=== PATIENT | female | born 1995 ===

== ENCOUNTER 2021-07-23 23:17 | Inpatient (IN) | payer OTHER, MEDICAID ==
--- NOTE | 2021-07-24 09:14 | PCM.LDHP ---
L&D History of Present Illness - General Date of Service: 07/24/21 Admit Problem/Dx: Admission Diagnosis/Problem Admission Diagnosis/Problem Source of Information: Patient History Limitations: Reports: No Limitations - History of Present Illness Improves with: Reports: None Worsens with: Reports: None Associated Symptoms: Reports: N - Related Data Allergies/Adverse Reactions: Allergies Allergy/AdvReac Type Severity Reaction Status Date / Time No Known Allergies Allergy Verified 04/19/18 12:25 MDT Home Medications: Home Meds Ferrous Sulfate [Iron] 325 mg PO DAILY 09/18/16 [History] Vit Calc,Iron,Folic [ Vitamins] 1 tab PO DAILY 09/18/16 [History] Ibuprofen 200 - 600 mg PO Q6H #50 tablet 04/19/18 [Rx] oxyCODONE HCl/Acetaminophen [Percocet 5-325 mg Tablet] 1 each PO Q6H #10 tablet 04/19/18 [Rx] 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 had MRSA in that wound Social & Family History - Caffeine Use Caffeine Use: Reports: Coffee H&P Review of Systems - Review of Systems: Review Of Systems: See Below General: Reports: No Symptoms HEENT: Reports: No Symptoms Pulmonary: Reports: No Symptoms Cardiovascular: Reports: No Symptoms Gastrointestinal: Reports: No Symptoms Genitourinary: Reports: No Symptoms Musculoskeletal: Reports: No Symptoms Skin: Reports: No Symptoms Psychiatric: Reports: No Symptoms Neurological: Reports: No Symptoms Hematologic/Lymphatic: Reports: No Symptoms Immunologic: Reports: No Symptoms L&D Exam - Exam Exam: See Below - OB Specific Contraction Intensity: Mild Movement: Active Heart Tones: Present Presentation: Vertex - Prather Score Prather Score Cervix Position: Midposition Prather Score Consistency: Soft Prather Score Effacement: 51-70% Prather Score Dilation: 1-2 cm Prather Score Infant's Station: -3 Prather Score Total: 6 - Exam General: Alert, Oriented HEENT: PERRLA, Conjunctiva Clear, EACs Clear, EOMI, Hearing Intact, Mucosa Moist & Streator, Nares Patent, Normal Nasal Septum, Posterior Pharynx Clear, TMs Clear Neck: Supple, Trachea Midline Lungs: Clear to Auscultation, Normal Respiratory Effort Cardiovascular: Regular Rate, Regular Rhythm GI/Abdominal Exam: Normal Bowel Sounds, Soft, Non-Tender, No Organomegaly, No Distention, No Abnormal Bruit, No Mass, Pelvis Stable Rectal Exam: Normal Exam, Normal Rectal Tone Genitourinary: Normal external exam, Normal bimanual exam, Normal speculum exam Back Exam: Normal Inspection, Full Range of Motion Extremities: Normal Inspection, Normal Range of Motion, Non-Tender, No Pedal Edema, Normal Capillary Refill Skin: Warm, Dry, Intact Neurological: Cranial Nerves Intact, Reflexes Equal Bilateral Psychiatric: Alert, Normal Affect, Normal Mood Problem List Initiated/Reviewed/Updated: Yes Assessment/Plan Comment:: 26 years old patient she is para 2002 she started her care late in our clinic she is admitted to labor and delivery in early labor because the distance the patient lived away from the hospital we can admit her and not given term labor.
--- NOTE | 2021-07-24 09:29 | PCM.PREANE ---
Preanesthetic Assessment - Procedure Proposed Procedure: Labor Epidural - Anesthesia/Transfusion/Family Hx Anesthesia History: Prior Anesthesia Reaction (PONV with narcotic in Epidural) Type of Anesthesia Reaction: Other (see below) (PONV) Family History of Anesthesia Reaction: No Transfusion History: No Prior Transfusion(s) - Review of Systems General: No Symptoms Pulmonary: No Symptoms Cardiovascular: No Symptoms Gastrointestinal: Other (Hep C, Obesity) Neurological: No Symptoms Other: Reports: None - Physical Assessment NPO Status Date: 07/24/21 NPO Status Time: 09:00 ASA Class: 3 Mental Status: Alert & Oriented x3 Airway Class: Mallampati = 2 Dentition: Reports: Normal Dentition Thyro-Mental Finger Breadths: 3 Mouth Opening Finger Breadths: 3 ROM/Head Extension: Full Lungs: Clear to Auscultation, Normal Respiratory Effort Cardiovascular: Regular Rate, Regular Rhythm - Allergies Allergies/Adverse Reactions: Allergies Allergy/AdvReac Type Severity Reaction Status Date / Time No Known Allergies Allergy Verified 04/19/18 12:25 MDT - Blood Blood Available: Yes Product(s) Available: PRBC - Anesthesia Plan Pre-Op Medication Ordered: None - Acknowledgements Anesthesia Type Planned: Epidural Pt an Appropriate Candidate for the Planned Anesthesia: Yes Alternatives and Risks of Anesthesia Discussed w Pt/Guardian: Yes Pt/Guardian Understands and Agrees with Anesthesia Plan: Yes 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 had MRSA in that wound - HOME MEDS Home Medications: Home Meds Ferrous Sulfate [Iron] 325 mg PO DAILY 09/18/16 [History] Vit Calc,Iron,Folic [ Vitamins] 1 tab PO DAILY 09/18/16 [History] Ibuprofen 200 - 600 mg PO Q6H #50 tablet 04/19/18 [Rx] oxyCODONE HCl/Acetaminophen [Percocet 5-325 mg Tablet] 1 each PO Q6H #10 tablet 04/19/18 [Rx]
[2021-07-24] MEDS ORDERED: Nalbuphine 10 MG/1 ML Vial IVPUSH PRN (09:32)
[2021-07-24] MEDS ORDERED: Ondansetron 4 MG/2 ML SDV IVPUSH PRN (09:32)
[2021-07-24] MEDS ORDERED: Butorphanol 1 MG/ML SDV IVPUSH PRN (09:32)
[2021-07-24] MEDS ORDERED: Sodium Chloride 0.9% 20 ML SDV IV PRN (09:32)
[2021-07-24] MEDS ORDERED: Methylergonovine 0.2 MG/1 ML Amp IM PRN (09:32)
[2021-07-24] MEDS ORDERED: Sodium Chloride 0.9% 10 ML Syringe FLUSH PRN (09:32)
[2021-07-24] MEDS ORDERED: Misoprostol 200 MCG Tab PO PRN (09:32)
[2021-07-24] MEDS ORDERED: Water For Irrigation,Sterile 1,000 ML Container IRR PRN (09:32)
[2021-07-24] MEDS ORDERED: Terbutaline 1 MG/ML SDV SUBCUT PRN (09:32)
[2021-07-24] MEDS ORDERED: Carboprost Tromethamine 250 MCG/1 ML Amp IM PRN (09:32)
[2021-07-24] MEDS ORDERED: Lidocaine 1% 50 ML MDV INJECT PRN (09:32)
[2021-07-24] MEDS ORDERED: Sodium Chloride 0.9% 2.5 ML Syringe FLUSH PRN (09:32)
[2021-07-24] MEDS ORDERED: Tranexamic Acid 1,000 MG in Sodium Chloride 0.9% 100 ML IV PRN (09:32)
[2021-07-24] MEDS: Lactated Ringers 1,000 ML IV SCH ×3 (09:40→22:34)
[2021-07-24] MEDS ORDERED: Oxytocin/0.9 % Sodium Chloride 30 UNIT/500 ML BAG IV SCH ×2 (09:45)
[2021-07-24] MEDS ORDERED: Misoprostol 25 MCG (1/4 of 100 MCG) Tab VAG PRN ×2 (10:00→14:00)
[2021-07-24] MEDS: Misoprostol 25 MCG (1/4 of 100 MCG) Tab PO SCH ×2 (10:24→14:26)
[2021-07-24] MEDS ORDERED: Ropivacaine HCl/PF 200 ML ONE (21:33)
--- NOTE | 2021-07-24 22:29 | PCM.SN.2 ---
- Free Text/Narrative Note: Lock out was 15 min with 6 ml bolus. Sterile technique used throughout. - Pre-Procedure Checklist Attending Provider Aware: Yes Chart Reviewed: Yes Consent Signed: Yes Labs Reviewed: Yes VS/FHR Reviewed: Yes Patient Identification Confirmation Method: Reports: Chart Visual, Verbal Patient Pt an Appropriate Candidate for the Planned Anesthesia: Yes Alternatives and Risks of Anesthesia Discussed w Pt/Guardian: Yes - Procedure Procedure Start Date: 07/24/21 Procedure Start Time: 21:[address]: Reports: Blood Pressure, Heart Rate, SPO2 Functional IV: Yes Safety Measures: Reports: Patient Identified, Procedure Verified, Site Verified, Procedure Time Out Patient Position: Reports: Sitting Prep: Reports: Betadine x3 Local Anesthetic: Reports: Intradermal Wheal w Lidocaine 1% (3 ml) Regional Placement Level: Reports: L3-4 Needle: Reports: 17 g Touhy Approach: Reports: Midline Technique: Reports: LARRY Glass Syringe LARRY Needle Depth (cm): 9 cm Parasthesia: Reports: None Fluid Obtained: Reports: None Catheter Depth at Skin (cm): 15 cm Test Dose Time: 21:52 Test Dose Medication: Reports: Lidocaine 1.5% w Epinephrine 1:200,000 (5 ml) Test Dose Response: Reports: Negative Loading Dose Time: 21:57 Loading Dose Medication: Ropivicaine 0.2% Loading Dose Patient Position: Supine Continuous Infusion Start Time: 21:58 Continuous Infusion Medication: Ropivicaine 0.2% Continuous Infusion Rate: 16
[2021-07-24] MEDS ORDERED: ePHEDrine 50 MG/ML SDV IVPUSH PRN (22:38)
--- NOTE | 2021-07-24 22:38 | PCM.POSTAN ---
POST ANESTHESIA ASSESSMENT - MENTAL STATUS Mental Status: Alert, Oriented - RESPIRATORY Respiratory Status: Respiratory Rate WNL, Airway Patent, O2 Saturation Stable - CARDIOVASCULAR CV Status: Pulse Rate WNL, Blood Pressure Stable (BP decreased following epidural and ephedrine and sis given for rapid correction) - GASTROINTESTINAL GI Status: No Symptoms - POST OP HYDRATION Hydration Status: Adequate & Stable
[2021-07-24] MEDS ORDERED: Ropivacaine/PF 400 MG/200 ML PCA EPIDUR SCH (22:45)
[2021-07-25] MEDS ORDERED: Furosemide 20 MG/2 ML VIAL IVPUSH ONE (08:55)
[2021-07-25] MEDS ORDERED: Furosemide 20 MG/2 ML VIAL ONE (09:06)
[2021-07-25] MEDS ORDERED: oxyCODONE 5 MG Tab PO PRN (09:20)
[2021-07-25] MEDS ORDERED: Bisacodyl 10 MG Supp RECTAL PRN (09:20)
[2021-07-25] MEDS ORDERED: Lanolin 100% Cream 7 GM Tube TOP PRN (09:20)
[2021-07-25] MEDS ORDERED: Benzocaine/Menthol 20%-0.5% Spray 78 GM Cannister TOP PRN (09:20)
[2021-07-25] MEDS ORDERED: Witch Hazel Medicated Pads 40/Jar TOP PRN (09:20)
[2021-07-25] MEDS ORDERED: Docusate Sodium 100 MG Cap PO PRN (09:20)
[2021-07-25] MEDS ORDERED: Acetaminophen 500 MG Tab PO PRN (09:20)
[2021-07-25] MEDS ORDERED: Ibuprofen 400 MG Tab PO PRN (09:20)
--- NOTE | 2021-07-25 14:51 | OR ---
SURGEON: James Fish MD DATE OF PROCEDURE: 07/25/2021 Ms. Cathi Enrique is 26 years old. She is para 2-0-0-2. She started late her care in our office. The patient is GBS status negative. She is admitted to Labor and Delivery with an early labor. She lived far away from the hospital. Because of that, we augmented her labor with Cytotec, no Pitocin, and the patient progressed rather slowly. She had epidural anesthesia for labor analgesia at 4 to 5 cm and then continued to progress slowly and she became complete, complete, and she was able to accomplish normal spontaneous vaginal delivery of a male fetus. score and the weight are not available to me at the time of the dictation. The reader referred to the nursery sheet. The placenta delivered spontaneous, complete, and intact. There was no episiotomy. There was no labial, vaginal, or perineal laceration. Estimated blood loss was 300 mL. heart rate was category 1 through the entire process of labor. There was no complication in the labor and delivery of this patient. LASHA / TORRI /[id number]
[2021-07-25] MEDS: Acetaminophen 500 MG Tab PO PRN (19:01)
[2021-07-25] MEDS: Misoprostol 25 MCG (1/4 of 100 MCG) Tab PO SCH ×2 (21:11→21:12)
[2021-07-25] MEDS: Ibuprofen 800 MG Tab PO PRN (22:36)
[2021-07-26] MEDS: Ibuprofen 800 MG Tab PO PRN (04:37)
[2021-07-26] MEDS: Acetaminophen 500 MG Tab PO PRN (04:38)
[2021-07-26 08:01] VITALS: BP 132/71; PULSE 64
--- NOTE | 2021-07-26 08:53 | PCM.PNPP ---
- General Info Date of Service: 08/15/21 Functional Status: Reports: Pain Controlled - Review of Systems General: Reports: No Symptoms HEENT: Reports: No Symptoms Pulmonary: Reports: No Symptoms Cardiovascular: Reports: No Symptoms Gastrointestinal: Reports: No Symptoms Genitourinary: Reports: No Symptoms Musculoskeletal: Reports: No Symptoms Skin: Reports: No Symptoms Neurological: Reports: No Symptoms Psychiatric: Reports: No Symptoms - General Info Date of Service: 07/26/21 - Patient Data Vital Signs - Most Recent: Last Vital Signs Temp 35.8 C L 07/26/21 08:00 Pulse 64 07/26/21 08:00 Resp 18 07/26/21 08:00 BP 132/71 07/26/21 08:00 Pulse Ox 94 L 07/26/21 08:00 Weight - Most Recent: 136.078 kg Lab Results - Last 24 Hours: Laboratory Results - last 24 hr 07/26/21 Range/Units 05:50 Hgb 9.6 L (12.0-16.0) g/dL Hct 29.5 L (36.0-46.0) % Med Orders - Current: Current Medications Acetaminophen (Acetaminophen 500 Mg Tab) 500 mg PO Q4H PRN PRN Reason: Pain (mild 1-3) Acetaminophen (Acetaminophen 500 Mg Tab) 1,000 mg PO Q4H PRN PRN Reason: Pain (mild 1-3) Last Admin: 07/26/21 04:38 Dose: 1,000 mg Documented by: Benzocaine/Menthol (Benzocaine/Menthol 20%-0.5% [place] 78 Gm Cannister) 78 gm TOP ASDIRECTED PRN PRN Reason: Perineal Comfort Measure Bisacodyl (Bisacodyl 10 Mg Supp) 10 mg RECTAL ONETIME PRN PRN Reason: Constipation Butorphanol Tartrate (Butorphanol 1 Mg/Ml Sdv) 1 mg IVPUSH Q1H PRN PRN Reason: Pain (severe 7-10) Last Admin: 07/24/21 18:25 Dose: 1 mg Documented by: Carboprost Tromethamine (Carboprost Tromethamine 250 Mcg/1 Ml Amp) 250 mcg IM ASDIRECTED PRN PRN Reason: Post Hemorrhage Docusate Sodium (Docusate Sodium 100 Mg Cap) 100 mg PO Q12H PRN PRN Reason: Constipation Last Admin: 07/25/21 19:00 Dose: 100 mg Documented by: Emollient Ointment (Lanolin 100% Cream 7 Gm Tube) 0 gm TOP ASDIRECTED PRN PRN Reason: Sore Nipples Ephedrine Sulfate (Ephedrine 50 Mg/Ml Sdv) 10 mg IVPUSH Q1M PRN PRN Reason: Hypotension Oxytocin/Sodium Chloride (Oxytocin 30 Unit In Ns 0.9% 500 Ml Premix) 30 unit in 500 mls @ 500 mls/hr IV TITRATE [facility] Last Admin: 07/25/21 08:40 Dose: 500 mls/hr Documented by: Tranexamic Acid 1,000 mg/ (Sodium Chloride) 110 mls @ 660 mls/hr IV ONETIME PRN PRN Reason: Bleeding Oxytocin/Sodium Chloride (Oxytocin 30 Unit In Ns 0.9% 500 Ml Premix) 30 unit in 500 mls @ 2 mls/hr IV TITRATE DONALD; Protocol Lactated Ringer's (Ringers, Lactated) 1,000 mls @ 150 mls/hr IV ASDIRECTED DONALD Last Admin: 07/24/21 22:34 Dose: 150 mls/hr Documented by: Ibuprofen (Ibuprofen 400 Mg Tab) 400 mg PO Q4H PRN PRN Reason: Pain (mild 1-3) Ibuprofen (Ibuprofen 800 Mg Tab) 800 mg PO Q6H PRN PRN Reason: Cramping Last Admin: 07/26/21 04:37 Dose: 800 mg Documented by: Lidocaine HCl (Lidocaine 1% 50 Ml Mdv) 50 ml INJECT ONETIME PRN PRN Reason: Laceration repair Methylergonovine Maleate (Methylergonovine 0.2 Mg/1 Ml Amp) 0.2 mg IM ASDIRECTED PRN PRN Reason: Post Hemorrhage Miscellaneous Medication (Phenylephrine Hcl In 0.9% Nacl 1 Mg/10 Ml Syringe) 0.1 mg IVPUSH Q1M PRN PRN Reason: Hypotension Misoprostol (Misoprostol 200 Mcg Tab) 200 mcg PO ONETIME PRN PRN Reason: Post Hemorrhage Nalbuphine HCl (Nalbuphine 10 Mg/1 Ml Vial) 10 mg IVPUSH Q1H PRN PRN Reason: Pain (severe 7-10) Ondansetron HCl (Ondansetron 4 Mg/2 Ml Sdv) 4 mg IVPUSH Q4H PRN PRN Reason: Nausea/Vomiting Oxycodone HCl (Oxycodone 5 Mg Tab) 5 mg PO Q2H PRN PRN Reason: Pain (severe 7-10) Ropivacaine (Ropivacaine/Pf 400 Mg/200 Ml Environmental Compliance Engineer) 400 mg EPIDUR ASDIRECTED DONALD Sodium Chloride (Sodium Chloride 0.9% 10 Ml Syringe) 10 ml FLUSH ASDIRECTED PRN PRN Reason: Keep Vein Open Sodium Chloride (Sodium Chloride 0.9% 2.5 Ml Syringe) 2.5 ml FLUSH ASDIRECTED PRN PRN Reason: Keep Vein Open Sodium Chloride (Sodium Chloride 0.9% 20 Ml Sdv) 10 ml IV ASDIRECTED PRN PRN Reason: IV Use Sterile Water (Water For Irrigation,Sterile 1,000 Ml Container) 1,000 ml IRR ASDIRECTED PRN PRN Reason: delivery Terbutaline Sulfate (Terbutaline 1 Mg/Ml Sdv) 0.25 mg SUBCUT ASDIRECTED PRN PRN Reason: Tacysystole Witch Brennan (Witch Brennan Medicated Pads 40/Jar) 1 pad TOP ASDIRECTED PRN PRN Reason: comfort care Discontinued Medications Furosemide (Furosemide 20 Mg/2 Ml Vial) 20 mg IVPUSH ONETIME ONE Stop: 07/25/21 08:56 Last Admin: 07/25/21 09:12 Dose: 20 mg Documented by: Furosemide (Furosemide 20 Mg/2 Ml Vial) Confirm Administered Dose 20 mg .ROUTE .STK-MED ONE Stop: 07/25/21 09:07 Last Admin: 07/25/21 21:12 Dose: Not Given Documented by: Ropivacaine (Naropin 0.2%) Confirm Administered Dose 200 mls @ as directed .ROUTE .STK-MED ONE Stop: 07/24/21 21:34 Last Admin: 07/25/21 21:12 Dose: Not Given Documented by: Misoprostol (Misoprostol 25 Mcg (1/4 Of 100 Mcg) Tab) 25 mcg VAG ONETIME PRN PRN Reason: Cervical Ripening Last Admin: 07/24/21 10:25 Dose: 25 mcg Documented by: Misoprostol (Misoprostol 25 Mcg (1/4 Of 100 Mcg) Tab) 25 mcg VAG Q4H PRN PRN Reason: Cervical Ripening Last Admin: 07/24/21 14:26 Dose: 25 mcg Documented by: Misoprostol (Misoprostol 25 Mcg (1/4 Of 100 Mcg) Tab) 25 mcg PO Q4H DONALD Last Admin: 07/25/21 21:12 Dose: Not Given Documented by: - Infant Interaction Infant Disposition, : [place] in Room with Family Feeding: Attempted ; Nursed Fair/Poor Support Person: Mother - Recovery Exam Fundal Tone: Firm Fundal Level: 2 Fingerbreadths Below Umbilicus Fundal Placement: Midline Lochia Amount: Scant Lochia Color: Rubra/Red Perineum Description: Intact, Minimal Bruising/Swelling Episiotomy/Laceration: None Bladder Status: Voiding Urinary Elimination: Voided - Exam General: Alert, Oriented HEENT: Pupils Equal Neck: Supple Lungs: Clear to Auscultation, Normal Respiratory Effort Cardiovascular: Regular Rate, Regular Rhythm GI/Abdominal Exam: Normal Bowel Sounds, Soft, Non-Tender, No Organomegaly, No Distention, No Abnormal Bruit, No Mass, Pelvis Stable Extremities: Normal Inspection, Normal Range of Motion, Non-Tender, No Pedal Edema, Normal Capillary Refill Skin: Warm, Dry, Intact Wound/Incisions: Healing Well Neurological: No New Focal Deficit Psy/Mental Status: Alert, Normal Affect, Normal Mood - Problem List Review Problem List Initiated/Reviewed/Updated: Yes - My Orders Last 24 Hours: My Active Orders 07/25/21 09:20 Patient Status [ADT] Routine Up ad Magalis [RC] ASDIRECTED Vital Signs [RC] PER UNIT ROUTINE Acetaminophen [Tylenol Extra Strength] 1,000 mg PO Q4H PRN Acetaminophen [Tylenol Extra Strength] 500 mg PO Q4H PRN Benzocaine/Menthol [Dermoplast Pain Relief 20%-0.5% [place]] 78 gm TOP ASDIRECTED PRN Docusate Sodium [Colace] 100 mg PO Q12H PRN Ibuprofen [Motrin] 400 mg PO Q4H PRN Ibuprofen [Motrin] 800 mg PO Q6H PRN Lanolin [Lansinoh HPA] See Dose Instructions TOP ASDIRECTED PRN bisacodyL [Dulcolax] 10 mg RECTAL ONETIME PRN oxyCODONE 5 mg PO Q2H PRN witch Brennan [Tucks] 1 pad TOP ASDIRECTED PRN Assess Lochia [WOMSER] Per Unit Routine Assess Uterine Involution [WOMSER] Per Unit Routine Peripheral IV Discontinue [OM.PC] Routine - Assessment Assessment:: Status post normal spontaneous vaginal delivery day #1 she is doing well she would be discharged home with a regular post instruction to be followed in the office at 6 weeks - Plan Plan:: 26 years old patient she is para 2001 she started her care late in our clinic she is admitted to labor and delivery in early labor because the distance the patient lived away from the hospital we can admit her and not given term labor.
== END 2021-07-26 13:49 | disposition home or self-care (01) | DRG 807 ==
LOC: MW.OB 23:17 → MW.OBCHECK 23:17 → MW.OB 07-24 09:32 → OBSVTOIN 07-25 09:20 → MW.OB 07-25 11:56
PROVIDERS: ADMIT Obstetrics & Gynecology; ATTEND Obstetrics & Gynecology
PROC: 10E0XZZ Delivery of Products of Conception, External Approach (ICD-10-PCS; principal; 2021-07-25)
PROC: 3E0R3BZ Introduction of Anesthetic Agent into Spinal Canal, Percutaneous Approach (ICD-10-PCS; 2021-07-25)
PROC: 00HU33Z Insertion of Infusion Device into Spinal Canal, Percutaneous Approach (ICD-10-PCS; 2021-07-25)
DX: O48.0 Post-term pregnancy (principal); Z37.0 Single live birth; Z3A.40 40 weeks gestation of pregnancy; O99.02 Anemia complicating childbirth; D64.9 Anemia, unspecified
CPT/HCPCS: 36415; 51702; 59025; 59409; 85014; 85018; 85027; 86592; 86850; 86900; 86901; A9270-GY; J0595; J1940; J2590; J2795; J7120; U0002